=== PATIENT | male | born 1970 | race Caucasian/White ===

== ENCOUNTER 2019-05-04 16:37 | Emergency (ER) | payer BC ==
[2019-05-04 17:42] VITALS: BP 129/71
[2019-05-04 18:10] LABS: Influenza A Molecular Negative (Negative); Influenza B Molecular Negative (Negative)
[2019-05-04] MEDS ORDERED: Albuterol/Ipratropium NEB.SOL* Albuterol 2.5 MG/Ipratropium 0.5 MG 3 ML INH ONE (18:16)
--- NOTE | 2019-05-04 18:46 | UC ---
Respiratory Complaint HPI - HPI Summary HPI Summary: 48-year-old male who has had cough and cold symptoms for approximately 3 or 4 weeks. States occasionally he coughs up yellow sputum. No history of asthma. He states over the past couple of days he's had intermittent fevers. He has been able to work a couple days and then he'll only be able to work part of a day. He has a moist loose cough. He's had some sinus pressure but he states that has resolved. - History of Current Complaint Chief Complaint: UCRespiratory Stated Complaint: COUGH/FEVER Time Seen by Provider: 05/04/19 17:51 Hx Obtained From: Patient Onset/Duration: Gradual Onset Timing: Intermittent Episodes Severity Initially: Mild Severity Currently: Moderate Pain Intensity: 6 Character: Cough: Productive - Productive cough of greenish sputum. Aggravating Factors: Deep Breaths Alleviating Factors: Nothing Associated Signs And Symptoms: Positive: Wheezing, URI, Nasal Congestion, Sinus Discomfort - Allergies/Home Medications Allergies/Adverse Reactions: Allergies Allergy/AdvReac Type Severity Reaction Status Date / Time Penicillins Allergy Intermediate Hives Verified 05/04/19 17:41 Home Medications: Home Medications Ibuprofen TAB* [Motrin TAB* 600 MG] 600 mg PO Q6H PRN 05/04/19 [History Confirmed 05/04/19] PMH/Surg Hx/FS Hx/Imm Hx Previously Healthy: Yes Psychological History: Depression - Surgical History Surgical History: None - Family History Known Family History: Positive: Non-Contributory - Social History Occupation: Employed Full-time Alcohol Use: None Substance Use Type: None Smoking Status (MU): Never Smoked Tobacco Review of Systems All Other Systems Reviewed And Are Negative: Yes Constitutional: Positive: Fever - Intermittent fevers over the past couple of weeks. ENT: Positive: Nasal Discharge, Sinus Congestion - Sinus pain or pressure but that has resolved over the past 2 days, Sinus Pain/Tenderness Respiratory: Positive: Cough - Productive cough of yellowish sputum Is Patient Immunocompromised?: No Physical Exam Triage Information Reviewed: Yes Appearance: Well-Appearing, No Pain Distress, Well-Nourished Vital Signs: Initial Vital Signs Temp 98.3 F 05/04/19 17:39 Pulse 96 05/04/19 17:39 Resp 20 05/04/19 17:39 BP 129/71 05/04/19 17:39 Pulse Ox 97 05/04/19 17:39 Vital Signs Reviewed: Yes Eyes: Positive: Conjunctiva Clear ENT: Positive: Hearing grossly normal, Pharynx normal, TMs normal, Uvula midline. Negative: Sinus tenderness Neck: Positive: Supple, Nontender, No Lymphadenopathy Respiratory: Positive: No respiratory distress, No accessory muscle use, Rhonchi , Wheezing - Scattered rhonchi and wheezing throughout all lung vasquez but with good air movement. No distress. Cardiovascular: Positive: RRR, No Murmur, Pulses Normal, Brisk Capillary Refill Musculoskeletal Exam: Normal Neurological Exam: Normal Psychological Exam: Normal Skin Exam: Normal Respiratory Course/Dx - Course Course Of Treatment: Chest x-ray: Negative as interpreted by myself and Dr. Menard. DuoNeb treatment: Patient felt much improved following the DuoNeb treatment with decreased wheezing. He continues to have scattered rhonchi throughout but feels like he is taking a better breath. Rapid flu test: Negative The patient is comfortable here and in no distress. He has used an albuterol inhaler in the past - Differential Dx/Diagnosis Provider Diagnosis: Sinusitis, Bronchitis Discharge ED - Sign-Out/Discharge Documenting (check all that apply): Patient Departure All imaging exams completed and their final reports reviewed: No - Discharge Plan Condition: Fair Disposition: HOME Prescriptions: Albuterol HFA INHALER* [Ventolin HFA Inhaler*] 2 puff INH Q4H PRN 5 Days #1 mdi PRN Reason: Wheezing DOXYcycline CAP(*) [DOXYcycline 100MG CAP(*)] 100 mg PO BID 10 Days #20 cap predniSONE 10 mg TAB [Deltasone 10 MG TAB*] 10 mg PO DAILY 12 Days #30 tab Patient Education Materials: Sinusitis (ED), Acute Bronchitis (ED) Forms: *Work Release Referrals: Lowell Key MD [Primary Care Provider] - Additional Instructions: Increase fluids, rest, no dairy products, antacids or multivitamins 2 hours before you take the doxycycline and 2 hours after however take it with food. Use your albuterol inhaler 2 puffs every 4-6 hours as needed for wheezing or tight cough. Take the prednisone with food. Definite follow-up with your primary care provider if no improvement by Friday and if you develop any worsening symptoms, shortness of breath difficulty breathing you are to go to the emergency room for further treatment. - Billing Disposition and Condition Condition: FAIR Disposition: Home - Attestation Statements Provider Attestation: This patient was not seen by me. I was available for consult. Chart reviewed. TOÑO
--- NOTE | 2019-05-05 08:45 | UC ---
- Progress Note Progress Note: chest xray report: IMPRESSION: NO EVIDENCE FOR ACTIVE CARDIOPULMONARY DISEASE. Course/Dx - Diagnoses Provider Diagnoses: Sinusitis, Bronchitis Discharge ED - Sign-Out/Discharge Documenting (check all that apply): Patient Departure All imaging exams completed and their final reports reviewed: Yes - Discharge Plan Condition: Fair Disposition: HOME Prescriptions: Albuterol HFA INHALER* [Ventolin HFA Inhaler*] 2 puff INH Q4H PRN 5 Days #1 mdi PRN Reason: Wheezing DOXYcycline CAP(*) [DOXYcycline 100MG CAP(*)] 100 mg PO BID 10 Days #20 cap predniSONE 10 mg TAB [Deltasone 10 MG TAB*] 10 mg PO DAILY 12 Days #30 tab Patient Education Materials: Sinusitis (ED), Acute Bronchitis (ED) Forms: *Work Release Referrals: Lowell Key MD [Primary Care Provider] - Additional Instructions: Increase fluids, rest, no dairy products, antacids or multivitamins 2 hours before you take the doxycycline and 2 hours after however take it with food. Use your albuterol inhaler 2 puffs every 4-6 hours as needed for wheezing or tight cough. Take the prednisone with food. Definite follow-up with your primary care provider if no improvement by Friday and if you develop any worsening symptoms, shortness of breath difficulty breathing you are to go to the emergency room for further treatment. - Billing Disposition and Condition Condition: FAIR Disposition: Home
== END 2019-05-04 19:02 | disposition home or self-care (01) ==
LOC: UCCORT 16:37
DX: J32.9 Chronic sinusitis, unspecified (principal); J40 Bronchitis, not specified as acute or chronic; Z88.0 Allergy status to penicillin
CPT/HCPCS: 71046; 99202; A9270-GY; G0463